=== PATIENT | male | born 1985 | race Caucasian/White ===

== ENCOUNTER 2016-06-22 13:52 | Emergency (ER) | payer BC ==
[~2016-06-22] VITALS: Ht 177.8 cm; Wt 63.0 kg
[2016-06-22] MEDS ORDERED: KETOROLAC 30MG/ML VIAL IV STA (14:10)
[2016-06-22] MEDS ORDERED: ONDANSETRON HCL 4MG/2ML VIAL IV STA (14:10)
[2016-06-22] MEDS ORDERED: SODIUM CHLORIDE 0.9% 1,000 ML IV ONE (14:10)
[2016-06-22 14:30] LABS: BASOPHILS % 0.3 % (0.0-2.0); EOSINOPHILS % 0.6 % (0.0-5.0); HEMATOCRIT. 45.1 % (42.0-52.0); HEMOGLOBIN. 15.2 g/dL (14.0-18.0); LYMPHOCYTES % 51.7 % (20.0-50.0); MEAN CORPUSCULAR HGB CONC 33.8 g/dL (31.0-37.0); MEAN PLATELET VOLUME 9.5 fl (7.4-10.4); MONOCYTES % 11.7 % (2.0-8.0); NEUTROPHILS % 35.7 % (40.0-76.0); PLATELET 224 x1000/uL (130-400); RED CELL DISTRIBUTION WIDTH 12.9 % (11.6-14.6); WHITE BLOOD COUNT 7.4 x1000/uL (4.5-11.0)
[2016-06-22 14:40] LABS: ANION GAP 19; CARBON DIOXIDE 22 mEq/L (21-32); CHLORIDE 102 mEq/L (98-107); UREA NITROGEN BLOOD 11 mg/dL (7-21)
[2016-06-22 14:41] LABS: ALBUMIN 4.4 g/dL (3.4-5.0); CALCIUM 9.1 mg/dL (8.5-10.1); INDEX HEMOLYSI 1 (1-3); INDEX ICTERIC 2 (1-4); INDEX LIPEMIC 1 (1-3); LIPASE 138 IU/L (73-393); MAGNESIUM 1.9 mg/dL (1.8-2.4)
[2016-06-22 14:44] LABS: eGFR > 60 mL/min (>60)
[2016-06-22 14:47] LABS: ALANINE AMINOTRANSFERASE 36 IU/L (13-61); NT PRO B-TYPE NATRIURETIC PEP 21 pg/mL (5-125); TROPONIN I < 0.02 ng/mL (0.00-0.04)
[2016-06-22 15:17] LABS: INR 1.1; PARTIAL THROMBOPLASTIN TIME 23.1 sec (24.0-34.0); PROTHROMBIN TIME 11.5 sec
[2016-06-22] MEDS ORDERED: POTASSIUM CHLORIDE 20MEQ TABLET SR PO ONE (15:30)
[2016-06-22 16:02] LABS: *AMPHETAMINES SCREEN URINE NEGATIVE (NEGATIVE); *BARBITURATES SCREEN URINE NEGATIVE (NEGATIVE); *BENZODIAZEPINES SCREEN URINE NEGATIVE (NEGATIVE); *COCAINE SCREEN URINE NEGATIVE (NEGATIVE); CANNABINOID URINE SCREEN PRESUMTIVE POSITIVE (NEGATIVE); ECSTASY MDMA SCREEN URINE NEGATIVE (NEGATIVE); METHADONE URINE SCREEN NEGATIVE (NEGATIVE); OPIATES URINE SCREEN NEGATIVE (NEGATIVE); PHENCYCLIDINE URINE SCREEN NEGATIVE (NEGATIVE)
[2016-06-22 17:18] VITALS: BP 126/72
== END 2016-06-22 17:36 | disposition home or self-care (01) ==
LOC: ER 14:25
DX: R07.89 Other chest pain (principal); R73.9 Hyperglycemia, unspecified; E87.6 Hypokalemia; I10 Essential (primary) hypertension; F12.10 Cannabis abuse, uncomplicated
CPT/HCPCS: 36415; 71010; 80053; 80305; 83690; 83735; 83880; 84443; 84484; 85025; 85610; 85730; 93005; 96361; 96374; 96375; 99285; J1885; J2405; J7030; Z7610

== ENCOUNTER 2021-06-25 15:54 | Emergency (ER) | payer BC, MEDICAID ==
[~2021-06-25] VITALS: Ht 180.3 cm; Wt 64.0 kg
[2021-06-25 16:05] VITALS: BP 132/83
[2021-06-25] MEDS ORDERED: LIDOCAINE HCL/PF 1% 10 MG/ML 5ML VIAL INFIL ONE (16:30)
[2021-06-25] MEDS ORDERED: BACITRACIN ZINC OINT UDPKT TOP ONE (16:30)
[2021-06-25] MEDS ORDERED: LIDOCAINE HCL 1% 20ML VIAL (Pyxis) INJ INFIL NR (16:50)
[2021-06-25] MEDS ORDERED: SULF1TAB48 PO (18:25)
[2021-06-25] MEDS ORDERED: IBUP-2029 PO (18:25)
[2021-06-25] MEDS ORDERED: CEPH500C2 MT (18:25)
== END 2021-06-25 19:08 | disposition home or self-care (01) ==
LOC: ER 15:54
DX: L02.212 Cutaneous abscess of back [any part, except buttock and flank] (principal)
CPT/HCPCS: 10060; 99283; J3490

== ENCOUNTER 2021-06-27 10:13 | Emergency (ER) | payer MEDICAID ==
[~2021-06-27] VITALS: Ht 180.3 cm; Wt 63.0 kg
[~2021-06-27 10:13] MED LIST: CEPH500C2 MT; IBUP-2029 PO; SULF1TAB48 PO
[2021-06-27 10:21] VITALS: BP 115/67
== END 2021-06-27 10:41 | disposition home or self-care (01) ==
LOC: ER 10:13
DX: Z48.00 Encounter for change or removal of nonsurgical wound dressing (principal); L02.212 Cutaneous abscess of back [any part, except buttock and flank]
CPT/HCPCS: 99283